=== PATIENT | female | born 1945 | race Caucasian/White ===

== ENCOUNTER → 2016-11-09 | Outpatient (CLI) | payer MEDICARE, OTHER ==
[~2016-11-09] MED LIST: LISI40TA PO; METF500T4 PO
== END | disposition home or self-care (01) ==
LOC: CFH 14:04
PROVIDERS: ATTEND Nurse Practitioner Family
DX: Z12.31 Encounter for screening mammogram for malignant neoplasm of breast (principal); I51.7 Cardiomegaly; I27.2 Other secondary pulmonary hypertension; J81.0 Acute pulmonary edema
CPT/HCPCS: 71020; G0202

== ENCOUNTER 2016-11-23 15:56 | Inpatient (IN) | payer OTHER ==
[~2016-11-23] VITALS: Ht 154.9 cm; Wt 68.2 kg
[2016-11-23] MEDS ORDERED: ALBUTEROL/IPRATROPIUM 2.5MG/0.5MG, 3 ML NPPB ONE (16:30)
[2016-11-23] MEDS ORDERED: SODIUM CHLORIDE FLUSH 10ML SYR IVF ONE (16:30)
[2016-11-23] MEDS ORDERED: methylPREDNISolone SOD SUCC 125 MG/2 ML IVP ONE (16:30)
[2016-11-23] MEDS ORDERED: ALBUTEROL/IPRATROPIUM 2.5MG/0.5MG, 3 ML ONE (16:33)
[2016-11-23 16:47] LABS: BLOOD UREA NITROGEN 19 mg/dL (7-18)
[2016-11-23 16:51] LABS: IS PT STATUS REG ER OR PRE ER? YES
[2016-11-23] MEDS ORDERED: methylPREDNISolone SOD SUCC 125 MG/2 ML ONE (16:52)
[2016-11-23] MEDS ORDERED: MORPHINE SULFATE 4 MG/ML, 1ML IVPush PRN (20:00)
[2016-11-23] MEDS ORDERED: HYDROcodone/APAP 5/325 TABLET PO PRN (20:00)
[2016-11-23] MEDS ORDERED: ONDANSETRON 2MG/ML, 2ML IVP PRN (20:00)
[2016-11-23] MEDS ORDERED: POLYETHYLENE GLYCOL 17 GM PACKET PO PRN (20:00)
[2016-11-23] MEDS ORDERED: DOCUSATE 100 MG CAPSULE PO PRN (20:00)
[2016-11-23] MEDS: INSULIN REGULAR 100 UNITS/ML, 3ML VIAL SQ-INSULIN SCH (21:00)
[2016-11-23 21:16] VITALS: BP 130/86
[2016-11-23] MEDS: ENOXAPARIN 40 MG/0.4 ML SQ SCH (22:47)
[2016-11-23] MEDS: SODIUM CHLORIDE FLUSH 10ML SYR IVF SCH (22:47)
[2016-11-23] MEDS: NICOTINE 14MG/24 HR PATCH.TD24 TD SCH (22:47)
[2016-11-23] MEDS: metFORMIN 500 MG TABLET PO SCH (22:47)
[2016-11-23] MEDS: methylPREDNISolone SOD SUCC 125 MG/2 ML IVPush SCH (22:47)
[2016-11-23] MEDS: DOXYCYCLINE 100 MG in DEXTROSE 5% 250 ML IV SCH (22:48)
[2016-11-24] MEDS ORDERED: AMLO5TAB2 PO (00:03)
[2016-11-24] MEDS ORDERED: GABA300C PO (00:03)
[2016-11-24] MEDS ORDERED: PROP20TA PO (00:03)
[2016-11-24] MEDS ORDERED: FLUO40CA9 PO (00:03)
[2016-11-24] MEDS ORDERED: GABA600T PO (00:03)
[2016-11-24] MEDS ORDERED: ATOR40TA78 PO (00:03)
[2016-11-24] MEDS: GABAPENTIN 300 MG CAPSULE PO SCH ×3 (00:33→20:22)
[2016-11-24 01:18] VITALS: BP 124/82
[2016-11-24] MEDS ORDERED: ALBUTEROL/IPRATROPIUM 2.5MG/0.5MG, 3 ML NPPB PRN (02:30)
[2016-11-24] MEDS: ALBUTEROL/IPRATROPIUM 2.5MG/0.5MG, 3 ML NPPB SCH ×4 (06:50→18:45)
[2016-11-24] MEDS: INSULIN REGULAR 100 UNITS/ML, 3ML VIAL SQ-INSULIN SCH ×4 (07:00→20:22)
[2016-11-24 07:25] VITALS: BP 129/84
[2016-11-24] MEDS: methylPREDNISolone SOD SUCC 125 MG/2 ML IVPush SCH ×3 (07:36→23:09)
[2016-11-24] MEDS: DOXYCYCLINE 100 MG in DEXTROSE 5% 250 ML IV SCH (07:52)
[2016-11-24] MEDS: FLUOXETINE 20 MG CAPSULE PO SCH (09:46)
[2016-11-24] MEDS: SODIUM CHLORIDE FLUSH 10ML SYR IVF SCH ×2 (09:46→20:23)
[2016-11-24] MEDS: metFORMIN 500 MG TABLET PO SCH ×2 (09:46→20:23)
[2016-11-24] MEDS: LISINOPRIL 20 MG TABLET PO SCH (09:47)
[2016-11-24] MEDS: SENNA/DOCUSATE TABLET PO SCH (09:48)
[2016-11-24 13:42] VITALS: BP 116/72
[2016-11-24 19:16] VITALS: BP 114/69
[2016-11-24] MEDS: DOXYCYCLINE 100MG TABLET PO SCH (20:22)
[2016-11-24] MEDS: ENOXAPARIN 40 MG/0.4 ML SQ SCH (20:23)
[2016-11-24] MEDS: NICOTINE 14MG/24 HR PATCH.TD24 TD SCH (20:24)
[2016-11-25 03:20] VITALS: BP 108/64
[2016-11-25 06:02] LABS: ASPARTATE AMINO TRANSFERASE 11 U/L (15-37); BLOOD UREA NITROGEN 27 mg/dL (7-18)
[2016-11-25] MEDS: ALBUTEROL/IPRATROPIUM 2.5MG/0.5MG, 3 ML NPPB SCH ×4 (07:00→19:17)
[2016-11-25] MEDS: INSULIN REGULAR 100 UNITS/ML, 3ML VIAL SQ-INSULIN SCH ×4 (07:18→21:02)
[2016-11-25 07:31] VITALS: BP 105/67
[2016-11-25] MEDS: methylPREDNISolone SOD SUCC 125 MG/2 ML IVPush SCH (07:32)
[2016-11-25] MEDS: metFORMIN 500 MG TABLET PO SCH ×2 (07:33→20:41)
[2016-11-25] MEDS: DOXYCYCLINE 100MG TABLET PO SCH ×2 (07:33→20:41)
[2016-11-25] MEDS: GABAPENTIN 300 MG CAPSULE PO SCH ×2 (07:33→20:41)
[2016-11-25] MEDS: SENNA/DOCUSATE TABLET PO SCH (07:33)
[2016-11-25] MEDS: LISINOPRIL 20 MG TABLET PO SCH (07:34)
[2016-11-25] MEDS: SODIUM CHLORIDE FLUSH 10ML SYR IVF SCH ×2 (07:35→20:41)
[2016-11-25] MEDS: FLUOXETINE 20 MG CAPSULE PO SCH (07:36)
[2016-11-25 13:00] LABS: RAPID INFLUENZA A Negative (Negative)
[2016-11-25 13:01] LABS: RAPID INFLUENZA B Negative (Negative)
[2016-11-25 13:47] VITALS: BP 105/70
[2016-11-25] MEDS: ACETAMINOPHEN 325 MG TABLET PO PRN (14:04)
[2016-11-25] MEDS: CEFTRIAXONE PMX 1GM/50ML 50 ML IV SCH (14:04)
[2016-11-25 19:17] VITALS: BP 92/64
[2016-11-25] MEDS: ENOXAPARIN 40 MG/0.4 ML SQ SCH (20:41)
[2016-11-25] MEDS: NICOTINE 14MG/24 HR PATCH.TD24 TD SCH (20:41)
[2016-11-26 02:05] VITALS: BP 120/85
[2016-11-26 06:09] LABS: BLOOD UREA NITROGEN 30 mg/dL (7-18)
[2016-11-26 06:13] LABS: ASPARTATE AMINO TRANSFERASE 9 U/L (15-37)
[2016-11-26] MEDS: ALBUTEROL/IPRATROPIUM 2.5MG/0.5MG, 3 ML NPPB SCH ×4 (06:30→18:58)
[2016-11-26] MEDS: INSULIN REGULAR 100 UNITS/ML, 3ML VIAL SQ-INSULIN SCH ×4 (07:00→20:56)
[2016-11-26 07:14] VITALS: BP 125/84
[2016-11-26] MEDS: metFORMIN 500 MG TABLET PO SCH ×2 (08:14→20:43)
[2016-11-26] MEDS: GABAPENTIN 300 MG CAPSULE PO SCH ×2 (08:14→20:43)
[2016-11-26] MEDS: SENNA/DOCUSATE TABLET PO SCH (08:14)
[2016-11-26] MEDS: FLUOXETINE 20 MG CAPSULE PO SCH (08:15)
[2016-11-26] MEDS: DOXYCYCLINE 100MG TABLET PO SCH ×2 (08:15→20:43)
[2016-11-26] MEDS: LISINOPRIL 20 MG TABLET PO SCH (08:15)
[2016-11-26] MEDS: SODIUM CHLORIDE FLUSH 10ML SYR IVF SCH ×2 (08:19→20:44)
[2016-11-26] MEDS: ACETAMINOPHEN 325 MG TABLET PO PRN (11:40)
[2016-11-26 12:27] VITALS: BP 130/62
[2016-11-26] MEDS: CEFTRIAXONE PMX 1GM/50ML 50 ML IV SCH (15:01)
[2016-11-26 20:03] VITALS: BP 116/74
[2016-11-26] MEDS: NICOTINE 14MG/24 HR PATCH.TD24 TD SCH (20:43)
[2016-11-26] MEDS: ENOXAPARIN 40 MG/0.4 ML SQ SCH (20:44)
[2016-11-27] MEDS ORDERED: GUAIFENESIN/DM 200-20MG, 10ML UDC PO ONE
[2016-11-27 03:25] VITALS: BP 113/63
[2016-11-27 06:24] LABS: ASPARTATE AMINO TRANSFERASE 12 U/L (15-37); BLOOD UREA NITROGEN 28 mg/dL (7-18)
[2016-11-27 07:03] VITALS: BP 160/89
[2016-11-27] MEDS: INSULIN REGULAR 100 UNITS/ML, 3ML VIAL SQ-INSULIN SCH ×4 (07:56→21:00)
[2016-11-27] MEDS: SODIUM CHLORIDE FLUSH 10ML SYR IVF SCH ×2 (07:57→20:14)
[2016-11-27] MEDS: metFORMIN 500 MG TABLET PO SCH ×2 (07:57→21:56)
[2016-11-27] MEDS: GABAPENTIN 300 MG CAPSULE PO SCH ×2 (07:58→21:56)
[2016-11-27] MEDS: DOXYCYCLINE 100MG TABLET PO SCH ×2 (07:58→21:56)
[2016-11-27] MEDS: LISINOPRIL 20 MG TABLET PO SCH (07:58)
[2016-11-27] MEDS: SENNA/DOCUSATE TABLET PO SCH (07:58)
[2016-11-27] MEDS: FLUOXETINE 20 MG CAPSULE PO SCH (07:58)
[2016-11-27] MEDS: ALBUTEROL/IPRATROPIUM 2.5MG/0.5MG, 3 ML NPPB SCH ×4 (08:03→19:13)
[2016-11-27 14:05] VITALS: BP 111/62
[2016-11-27] MEDS: GUAIFENESIN 200 MG TABLET PO PRN (14:09)
[2016-11-27] MEDS: CEFTRIAXONE PMX 1GM/50ML 50 ML IV SCH (14:09)
[2016-11-27 18:44] VITALS: BP 146/74
[2016-11-27] MEDS: ENOXAPARIN 40 MG/0.4 ML SQ SCH (20:14)
[2016-11-27] MEDS: NICOTINE 14MG/24 HR PATCH.TD24 TD SCH (20:14)
[2016-11-28 02:05] VITALS: BP 130/86
[2016-11-28 05:56] LABS: BLOOD UREA NITROGEN 29 mg/dL (7-18)
[2016-11-28] MEDS: ALBUTEROL/IPRATROPIUM 2.5MG/0.5MG, 3 ML NPPB SCH ×3 (07:50→16:18)
[2016-11-28 07:53] VITALS: BP 152/80
[2016-11-28] MEDS: SENNA/DOCUSATE TABLET PO SCH (09:00)
[2016-11-28] MEDS: INSULIN REGULAR 100 UNITS/ML, 3ML VIAL SQ-INSULIN SCH ×4 (09:25→21:00)
[2016-11-28] MEDS: FLUOXETINE 20 MG CAPSULE PO SCH (09:33)
[2016-11-28] MEDS: LISINOPRIL 20 MG TABLET PO SCH (09:34)
[2016-11-28] MEDS: DOXYCYCLINE 100MG TABLET PO SCH ×2 (09:34→22:16)
[2016-11-28] MEDS: GABAPENTIN 300 MG CAPSULE PO SCH ×2 (09:34→22:16)
[2016-11-28] MEDS: metFORMIN 500 MG TABLET PO SCH ×2 (09:34→22:16)
[2016-11-28] MEDS: SODIUM CHLORIDE FLUSH 10ML SYR IVF SCH ×2 (09:34→21:00)
[2016-11-28] MEDS: GUAIFENESIN 200 MG TABLET PO PRN (09:35)
[2016-11-28] MEDS ORDERED: maalox/diphenh/lido/sucralfate 5 ML PO PRN (11:00)
[2016-11-28] MEDS: CEFTRIAXONE PMX 1GM/50ML 50 ML IV SCH (13:45)
[2016-11-28] MEDS: NYSTATIN 500,000 UNITS/5 ML UDC PO SCH ×3 (13:45→22:16)
[2016-11-28 16:46] VITALS: BP 107/68
[2016-11-28 19:10] VITALS: BP 112/72
[2016-11-28] MEDS: NICOTINE 14MG/24 HR PATCH.TD24 TD SCH (19:51)
[2016-11-28] MEDS: ENOXAPARIN 40 MG/0.4 ML SQ SCH (19:51)
[2016-11-29 01:56] VITALS: BP 136/88
[2016-11-29] MEDS: NYSTATIN 500,000 UNITS/5 ML UDC PO SCH ×3 (06:00→12:08)
[2016-11-29] MEDS: INSULIN REGULAR 100 UNITS/ML, 3ML VIAL SQ-INSULIN SCH ×2 (07:00→11:00)
[2016-11-29] MEDS ORDERED: ALBUTEROL/IPRATROPIUM 2.5MG/0.5MG, 3 ML NPPB PRN (07:00)
[2016-11-29 07:01] VITALS: BP 143/89
[2016-11-29] MEDS: SODIUM CHLORIDE FLUSH 10ML SYR IVF SCH (09:00)
[2016-11-29] MEDS ORDERED: CEFD300C37 PO (11:10)
[2016-11-29] MEDS ORDERED: DOXY100T PO (11:10)
[2016-11-29] MEDS ORDERED: FLUT1BLS INH (11:10)
[2016-11-29] MEDS ORDERED: TIOT18CA INH (11:10)
[2016-11-29] MEDS ORDERED: PRED20TA PO (11:10)
[2016-11-29] MEDS ORDERED: ALBU8.5H3 INH (11:12)
[2016-11-29] MEDS ORDERED: ALBU0.63 NEB (11:17)
[2016-11-29] MEDS ORDERED: NICO1PAT4 TD (11:23)
[2016-11-29] MEDS ORDERED: GUAI200T3 PO (11:23)
[2016-11-29] MEDS: GABAPENTIN 300 MG CAPSULE PO SCH (12:06)
[2016-11-29] MEDS: metFORMIN 500 MG TABLET PO SCH (12:06)
[2016-11-29] MEDS: LISINOPRIL 20 MG TABLET PO SCH (12:07)
[2016-11-29] MEDS: DOXYCYCLINE 100MG TABLET PO SCH (12:07)
[2016-11-29] MEDS: SENNA/DOCUSATE TABLET PO SCH (12:07)
[2016-11-29] MEDS: FLUOXETINE 20 MG CAPSULE PO SCH (12:07)
== END 2016-11-29 13:53 | disposition home or self-care (01) | DRG 189 ==
LOC: ED 19:00 → EDIP 19:04 → SUATTDRO 19:09 → ED 19:32 → 3NE 20:45
PROVIDERS: ADMIT Family Medicine; ATTEND Family Medicine
DX: J96.01 Acute respiratory failure with hypoxia (principal); J18.9 Pneumonia, unspecified organism; E43 Unspecified severe protein-calorie malnutrition; E44.0 Moderate protein-calorie malnutrition; J44.1 Chronic obstructive pulmonary disease with (acute) exacerbation; J44.0 Chronic obstructive pulmonary disease with (acute) lower respiratory infection; E78.5 Hyperlipidemia, unspecified; F17.200 Nicotine dependence, unspecified, uncomplicated; E11.649 Type 2 diabetes mellitus with hypoglycemia without coma; G89.29 Other chronic pain; M54.9 Dorsalgia, unspecified; I10 Essential (primary) hypertension; Z79.84 Long term (current) use of oral hypoglycemic drugs; Z79.899 Other long term (current) drug therapy; Z82.49 Family history of ischemic heart disease and other diseases of the circulatory system; Z83.3 Family history of diabetes mellitus; Z82.5 Family history of asthma and other chronic lower respiratory diseases; Z71.6 Tobacco abuse counseling; Z90.49 Acquired absence of other specified parts of digestive tract; Z90.710 Acquired absence of both cervix and uterus; Z68.24 Body mass index [BMI] 24.0-24.9, adult; E11.9 Type 2 diabetes mellitus without complications
CPT/HCPCS: 36415; 71010; 71020; 80048; 80053; 82040; 82962; 83036; 83735; 83880; 84145; 84484; 85025; 87040; 87070; 87081; 87205; 87400; 87880; 93005; 94640; 96374; J0696; J1650; J1815; J7060; J7620; J2930; J7512

== ENCOUNTER → 2016-12-25 | Outpatient (CLI) | payer OTHER ==
[~2016-12-25] MED LIST changes: +ALBU0.63 NEB; +ALBU8.5H3 INH; +AMLO5TAB2 PO; +ATOR40TA78 PO; +CEFD300C37 PO; +DOXY100T PO; +FLUO40CA9 PO; +FLUT1BLS INH; +GABA300C PO; +GABA600T PO; +GUAI200T3 PO; +NICO1PAT4 TD; +PRED20TA PO; +PROP20TA PO; +REGADENOSON 0.4 MG/5 ML SYRINGE ONE; +TIOT18CA INH
== END | disposition home or self-care (01) ==
LOC: CFH 07:14
PROVIDERS: ATTEND Internal Medicine Cardiovascular Disease
DX: I08.3 Combined rheumatic disorders of mitral, aortic and tricuspid valves (principal); I37.1 Nonrheumatic pulmonary valve insufficiency; I51.7 Cardiomegaly; E11.9 Type 2 diabetes mellitus without complications; Z87.891 Personal history of nicotine dependence
CPT/HCPCS: 78452; 93017; 93306; A9502; J2785

== ENCOUNTER → 2017-01-22 | Outpatient (CLI) | payer OTHER ==
[~2017-01-22] MED LIST changes: -REGADENOSON 0.4 MG/5 ML SYRINGE ONE
== END | disposition home or self-care (01) ==
LOC: CFH 15:18
PROVIDERS: ATTEND Nurse Practitioner Family
DX: J44.9 Chronic obstructive pulmonary disease, unspecified (principal); M79.645 Pain in left finger(s); G89.29 Other chronic pain; Z87.81 Personal history of (healed) traumatic fracture
CPT/HCPCS: 71020

== ENCOUNTER 2017-07-18 15:22 | Emergency (ER) | payer OTHER ==
[~2017-07-18] VITALS: Ht 154.9 cm; Wt 65.1 kg
[~2017-07-18 15:22] MED LIST changes: -ALBU8.5H3 INH; +ALBU8.5H8 INH; +NICO-486 TD; -NICO1PAT4 TD
[2017-07-18] MEDS ORDERED: ALBUTEROL SULFATE 2.5 MG/3 ML NPPB ONE (17:30)
[2017-07-18 17:46] LABS: RAPID INFLUENZA A Negative (Negative); RAPID INFLUENZA B Negative (Negative)
[2017-07-18 17:55] LABS: BASOPHILS # (AUTO) 0.06 x10^3/uL (0-0.1); BASOPHILS % (AUTO) 1 % (0-1); EOSINOPHILS # (AUTO) 0.17 x10^3/uL (0-0.4); EOSINOPHILS % (AUTO) 2 % (1-7); LYMPHOCYTES # (AUTO) 3.31 x10^3/uL (1-3.4); LYMPHOCYTES % (AUTO) 39 % (22-44); MD NO; MEAN CORPUSCULAR HEMOGLOBIN 28.5 pg (27.0-34.8); MEAN CORPUSCULAR HGB CONC 32.5 g/dL (32.4-35.8); MEAN CORPUSCULAR VOLUME 87.7 fL (80-100); MEAN PLATELET VOLUME 10.2 fL (7.4-10.4); MONOCYTES # (AUTO) 0.75 x10^3/uL (0.2-0.8); MONOCYTES % (AUTO) 9 % (2-9); NEUTROPHILS # (AUTO) 4.28 x10^3/uL (1.8-6.8); NEUTROPHILS % (AUTO) 50 % (42-75); PLATELET COUNT 275 x10^3/uL (130-400); RED BLOOD COUNT 5.06 x10^6/uL (3.82-5.3)
[2017-07-18 18:01] LABS: ANION GAP 6 mmol/L (5-15); CALCIUM 8.9 mg/dL (8.5-10.1); CHLORIDE 101 mmol/L (98-107); CREATININE 0.82 mg/dL (0.55-1.02)
[2017-07-18 19:24] VITALS: BP 144/72
== END 2017-07-18 19:26 | disposition home or self-care (01) ==
LOC: ED 18:25
DX: B34.9 Viral infection, unspecified (principal); E11.9 Type 2 diabetes mellitus without complications; I10 Essential (primary) hypertension; J44.9 Chronic obstructive pulmonary disease, unspecified
CPT/HCPCS: 36415; 80048; 82040; 85025; 87400; 93005; 94640; 99285; J7613

== ENCOUNTER → 2017-08-25 | Outpatient (CLI) | payer OTHER ==
[~2017-08-25] MED LIST changes: +OMNIPAQUE 350 MG/ML, 100ML BOTTLE ONE
== END | disposition home or self-care (01) ==
LOC: CFH 14:08
PROVIDERS: ATTEND Nurse Practitioner Family
DX: J44.9 Chronic obstructive pulmonary disease, unspecified (principal); R63.4 Abnormal weight loss
CPT/HCPCS: 71260; 74177; Q9967

== ENCOUNTER 2017-09-17 15:04 | Inpatient (IN) | payer OTHER ==
[~2017-09-17] VITALS: Ht 154.9 cm; Wt 67.4 kg
[~2017-09-17 15:04] MED LIST changes: -OMNIPAQUE 350 MG/ML, 100ML BOTTLE ONE
[2017-09-17] MEDS ORDERED: ALBUTEROL/IPRATROPIUM 2.5MG/0.5MG, 3 ML NPPB ONE ×2 (15:30→17:00)
[2017-09-17] MEDS ORDERED: ALBUTEROL/IPRATROPIUM 2.5MG/0.5MG, 3 ML ONE ×2 (16:07→16:14)
[2017-09-17 16:14] LABS: BASOPHILS # (AUTO) 0.12 x10^3/uL (0-0.1); BASOPHILS % (AUTO) 1 % (0-1); EOSINOPHILS # (AUTO) 0.25 x10^3/uL (0-0.4); EOSINOPHILS % (AUTO) 2 % (1-7); LYMPHOCYTES # (AUTO) 3.48 x10^3/uL (1-3.4); LYMPHOCYTES % (AUTO) 31 % (22-44); MD NO; MEAN CORPUSCULAR HEMOGLOBIN 29.3 pg (27.0-34.8); MEAN CORPUSCULAR VOLUME 88.8 fL (80-100); MEAN PLATELET VOLUME 10.1 fL (7.4-10.4); MONOCYTES # (AUTO) 0.81 x10^3/uL (0.2-0.8); MONOCYTES % (AUTO) 7 % (2-9); NEUTROPHILS # (AUTO) 6.61 x10^3/uL (1.8-6.8); NEUTROPHILS % (AUTO) 59 % (42-75); PLATELET COUNT 318 x10^3/uL (130-400); RED BLOOD COUNT 4.65 x10^6/uL (3.82-5.3); RED CELL DISTRIBUTION WIDTH 14.1 % (9.6-15.2)
[2017-09-17] MEDS ORDERED: ASPIRIN 81 MG TABLET CHEW ONE (16:16)
[2017-09-17 16:27] LABS: ALANINE AMINOTRANSFERASE 13 U/L (12-78); ALBUMIN 2.8 g/dL (3.4-5.0); ANION GAP 7 mmol/L (5-15); CHLORIDE 100 mmol/L (98-107)
[2017-09-17] MEDS ORDERED: ASPIRIN 81 MG TABLET CHEW PO ONE (16:30)
[2017-09-17 16:31] LABS: ALKALINE PHOSPHATASE 84 U/L (45-117); BILIRUBIN,TOTAL 0.2 mg/dL (0.2-1.0); TOTAL PROTEIN 6.8 g/dL (6.4-8.2); TROPONIN I < 0.015 ng/mL (0.000-0.045)
[2017-09-17] MEDS ORDERED: ACETAMINOPHEN 325 MG TABLET PO PRN (17:30)
[2017-09-17] MEDS ORDERED: BISACODYL 10 MG SUPP PR PRN (17:30)
[2017-09-17] MEDS ORDERED: ENALAPRILAT 1.25 MG/ML, 2ML IVPush PRN (17:30)
[2017-09-17] MEDS ORDERED: ONDANSETRON 2MG/ML, 2ML IVPush PRN (17:30)
[2017-09-17] MEDS ORDERED: CEFTRIAXONE PMX 1GM/50ML 50 ML IV SCH (17:30)
[2017-09-17] MEDS ORDERED: POLYETHYLENE GLYCOL 17 GM PACKET PO PRN (17:30)
[2017-09-17] MEDS ORDERED: DOCUSATE 100 MG CAPSULE PO PRN (17:30)
[2017-09-17] MEDS ORDERED: TEMPLATE NON-FORMULARY MED. (Albuterol Sulfate (Albuterol Sulfate**) 1 VIAL) NEB PRN (17:30)
[2017-09-17] MEDS ORDERED: ENOXAPARIN 40 MG/0.4 ML ONE (17:41)
[2017-09-17] MEDS ORDERED: CEFTRIAXONE PMX 1GM/50ML 50 ML ONE (17:41)
[2017-09-17] MEDS: ENOXAPARIN 40 MG/0.4 ML SQ SCH (18:12)
[2017-09-17 19:15] VITALS: BP 117/76
[2017-09-17] MEDS: ATORVASTATIN 40 MG TABLET PO SCH (21:00)
[2017-09-17] MEDS ORDERED: ALBUTEROL SULFATE 2.5 MG/3 ML NPPB SCH (21:00)
[2017-09-17] MEDS: DOXYCYCLINE 100 MG in DEXTROSE 5% 250 ML IV SCH (21:21)
[2017-09-17] MEDS: metFORMIN 500 MG TABLET PO SCH (21:21)
[2017-09-17] MEDS: GUAIFENESIN ER 600 MG TABLET PO SCH (21:21)
[2017-09-17] MEDS: AMLODIPINE 5 MG TABLET PO SCH (21:21)
[2017-09-17] MEDS: FLUTICASONE/VILANTEROL 200-25MCG/INH INH SCH (21:21)
[2017-09-17] MEDS: SODIUM CHLORIDE FLUSH 10ML SYR IVF SCH (21:22)
[2017-09-17] MEDS: GABAPENTIN 300 MG CAPSULE PO SCH (21:22)
[2017-09-17] MEDS: PROPRANOLOL 20 MG TABLET PO SCH (21:22)
[2017-09-17] MEDS ORDERED: ALBUTEROL/IPRATROPIUM 2.5MG/0.5MG, 3 ML NPPB PRN (21:30)
[2017-09-17 22:06] LABS: RAPID INFLUENZA A Negative (Negative); RAPID INFLUENZA B Negative (Negative)
[2017-09-18 01:19] VITALS: BP 96/64
[2017-09-18 05:02] LABS: BASOPHILS # (AUTO) 0.08 x10^3/uL (0-0.1); BASOPHILS % (AUTO) 1 % (0-1); EOSINOPHILS % (AUTO) 0 % (1-7); LYMPHOCYTES # (AUTO) 2.47 x10^3/uL (1-3.4); LYMPHOCYTES % (AUTO) 22 % (22-44); MD NO; MEAN CORPUSCULAR HEMOGLOBIN 28.9 pg (27.0-34.8); MEAN CORPUSCULAR VOLUME 87.7 fL (80-100); MONOCYTES # (AUTO) 0.27 x10^3/uL (0.2-0.8); MONOCYTES % (AUTO) 2 % (2-9); NEUTROPHILS # (AUTO) 8.68 x10^3/uL (1.8-6.8); NEUTROPHILS % (AUTO) 76 % (42-75); PLATELET COUNT 318 x10^3/uL (130-400); RED BLOOD COUNT 4.69 x10^6/uL (3.82-5.3); RED CELL DISTRIBUTION WIDTH 14.2 % (9.6-15.2)
[2017-09-18 05:08] LABS: ANION GAP 7 mmol/L (5-15); CALCIUM 8.8 mg/dL (8.5-10.1); CHLORIDE 100 mmol/L (98-107); CREATININE 0.84 mg/dL (0.55-1.02)
[2017-09-18 07:24] VITALS: BP 132/89
[2017-09-18] MEDS: ALBUTEROL/IPRATROPIUM 2.5MG/0.5MG, 3 ML NPPB SCH ×4 (07:38→21:40)
[2017-09-18] MEDS: SODIUM CHLORIDE FLUSH 10ML SYR IVF SCH ×2 (08:44→21:07)
[2017-09-18] MEDS: FLUTICASONE/VILANTEROL 200-25MCG/INH INH SCH ×2 (08:44→21:07)
[2017-09-18] MEDS: GABAPENTIN 300 MG CAPSULE PO SCH ×2 (08:45→21:07)
[2017-09-18] MEDS: metFORMIN 500 MG TABLET PO SCH ×2 (08:45→21:07)
[2017-09-18] MEDS: PROPRANOLOL 20 MG TABLET PO SCH ×2 (08:45→21:07)
[2017-09-18] MEDS: LISINOPRIL 20 MG TABLET PO SCH (08:45)
[2017-09-18] MEDS: GUAIFENESIN ER 600 MG TABLET PO SCH ×2 (08:45→21:07)
[2017-09-18] MEDS: FLUOXETINE HCL 20 MG CAPSULE PO SCH (08:46)
[2017-09-18] MEDS ORDERED: IPRATROPIUM 0.5 MG/2.5 ML INHA NPPB SCH (09:00)
[2017-09-18] MEDS: DOXYCYCLINE 100 MG in DEXTROSE 5% 250 ML IV SCH ×2 (09:26→21:07)
[2017-09-18 14:00] VITALS: BP 112/74
[2017-09-18] MEDS: ENOXAPARIN 40 MG/0.4 ML SQ SCH (17:49)
[2017-09-18] MEDS: CEFTRIAXONE 1,000 MG in SODIUM CHLORIDE 0.9% 50 ML IV SCH (17:52)
[2017-09-18 19:22] VITALS: BP 106/59
[2017-09-18] MEDS: ATORVASTATIN 40 MG TABLET PO SCH (21:00)
[2017-09-18] MEDS: AMLODIPINE 5 MG TABLET PO SCH (21:07)
[2017-09-19 01:40] VITALS: BP 102/60
[2017-09-19 05:11] LABS: BASOPHILS # (AUTO) 0.03 x10^3/uL (0-0.1); BASOPHILS % (AUTO) 0 % (0-1); EOSINOPHILS % (AUTO) 0 % (1-7); LYMPHOCYTES # (AUTO) 3.16 x10^3/uL (1-3.4); LYMPHOCYTES % (AUTO) 22 % (22-44); MD NO; MEAN CORPUSCULAR HGB CONC 32.9 g/dL (32.4-35.8); MEAN CORPUSCULAR VOLUME 88.1 fL (80-100); MEAN PLATELET VOLUME 9.9 fL (7.4-10.4); MONOCYTES # (AUTO) 0.87 x10^3/uL (0.2-0.8); MONOCYTES % (AUTO) 6 % (2-9); NEUTROPHILS # (AUTO) 10.38 x10^3/uL (1.8-6.8); NEUTROPHILS % (AUTO) 72 % (42-75); PLATELET COUNT 302 x10^3/uL (130-400); RED BLOOD COUNT 4.25 x10^6/uL (3.82-5.3); RED CELL DISTRIBUTION WIDTH 14.6 % (9.6-15.2)
[2017-09-19 05:15] LABS: ANION GAP 8 mmol/L (5-15); CALCIUM 8.6 mg/dL (8.5-10.1); CHLORIDE 101 mmol/L (98-107); CREATININE 0.85 mg/dL (0.55-1.02)
[2017-09-19] MEDS: ALBUTEROL/IPRATROPIUM 2.5MG/0.5MG, 3 ML NPPB SCH ×4 (07:23→19:55)
[2017-09-19 07:50] VITALS: BP 106/56
[2017-09-19] MEDS: metFORMIN 500 MG TABLET PO SCH ×2 (08:36→21:42)
[2017-09-19] MEDS: FLUOXETINE HCL 20 MG CAPSULE PO SCH (08:36)
[2017-09-19] MEDS: SODIUM CHLORIDE FLUSH 10ML SYR IVF SCH ×2 (08:36→21:00)
[2017-09-19] MEDS: GUAIFENESIN ER 600 MG TABLET PO SCH ×2 (08:36→21:42)
[2017-09-19] MEDS: GABAPENTIN 300 MG CAPSULE PO SCH ×2 (08:37→21:41)
[2017-09-19] MEDS: FLUTICASONE/VILANTEROL 200-25MCG/INH INH SCH ×2 (08:37→21:41)
[2017-09-19] MEDS: PROPRANOLOL 20 MG TABLET PO SCH ×2 (08:37→21:00)
[2017-09-19] MEDS: LISINOPRIL 20 MG TABLET PO SCH (08:37)
[2017-09-19] MEDS: DOXYCYCLINE 100 MG in DEXTROSE 5% 250 ML IV SCH ×2 (09:49→22:30)
[2017-09-19 14:21] VITALS: BP 116/57
[2017-09-19 15:01] LABS: CLOSTRIDIUM DIFFICILE ANTIGEN NEGATIVE; CLOSTRIDIUM DIFFICILE TOXIN NEGATIVE (Negative)
[2017-09-19] MEDS: LOPERAMIDE 2 MG CAPSULE PO PRN (16:00)
[2017-09-19] MEDS: ENOXAPARIN 40 MG/0.4 ML SQ SCH (17:45)
[2017-09-19] MEDS: CEFTRIAXONE 1,000 MG in SODIUM CHLORIDE 0.9% 50 ML IV SCH (17:45)
[2017-09-19 19:15] VITALS: BP 105/70
[2017-09-19] MEDS: ATORVASTATIN 40 MG TABLET PO SCH (21:41)
[2017-09-19] MEDS: AMLODIPINE 5 MG TABLET PO SCH (21:42)
[2017-09-20 02:49] VITALS: BP 104/69
[2017-09-20] MEDS: ALBUTEROL/IPRATROPIUM 2.5MG/0.5MG, 3 ML NPPB SCH (07:00)
[2017-09-20 07:12] VITALS: BP 123/73
[2017-09-20] MEDS: FLUOXETINE HCL 20 MG CAPSULE PO SCH (08:12)
[2017-09-20] MEDS: FLUTICASONE/VILANTEROL 200-25MCG/INH INH SCH (08:12)
[2017-09-20] MEDS: GABAPENTIN 300 MG CAPSULE PO SCH (08:13)
[2017-09-20] MEDS: PROPRANOLOL 20 MG TABLET PO SCH (08:13)
[2017-09-20] MEDS: GUAIFENESIN ER 600 MG TABLET PO SCH (08:13)
[2017-09-20] MEDS: LISINOPRIL 20 MG TABLET PO SCH (08:13)
[2017-09-20] MEDS: metFORMIN 500 MG TABLET PO SCH (08:13)
[2017-09-20] MEDS: DOXYCYCLINE 100 MG in DEXTROSE 5% 250 ML IV SCH (08:56)
[2017-09-20] MEDS: SODIUM CHLORIDE FLUSH 10ML SYR IVF SCH (09:01)
[2017-09-20] MEDS: LOPERAMIDE 2 MG CAPSULE PO PRN (10:15)
[2017-09-20] MEDS ORDERED: PRED20TA PO (12:35)
[2017-09-20] MEDS ORDERED: DOXY100T PO (12:35)
[2017-09-20] MEDS ORDERED: CEFD300C37 PO (12:35)
== END 2017-09-20 14:22 | disposition home health service (06) | DRG 189 ==
LOC: ED 16:33 → EDIP 17:05 → 4NOR 18:41 → DCLOUNGE 09-20 14:07
PROVIDERS: ADMIT Internal Medicine; ATTEND Internal Medicine
DX: J96.21 Acute and chronic respiratory failure with hypoxia (principal); E44.0 Moderate protein-calorie malnutrition; E11.65 Type 2 diabetes mellitus with hyperglycemia; J44.0 Chronic obstructive pulmonary disease with (acute) lower respiratory infection; J44.1 Chronic obstructive pulmonary disease with (acute) exacerbation; E78.5 Hyperlipidemia, unspecified; F17.210 Nicotine dependence, cigarettes, uncomplicated; I11.9 Hypertensive heart disease without heart failure; J20.9 Acute bronchitis, unspecified; T38.0X5A Adverse effect of glucocorticoids and synthetic analogues, initial encounter; Z66 Do not resuscitate; Z79.84 Long term (current) use of oral hypoglycemic drugs; Z82.49 Family history of ischemic heart disease and other diseases of the circulatory system; Z83.3 Family history of diabetes mellitus; Z90.710 Acquired absence of both cervix and uterus; Z99.81 Dependence on supplemental oxygen; Z88.6 Allergy status to analgesic agent; Z91.038 Other insect allergy status
CPT/HCPCS: 36415; 71046; 80048; 80053; 83880; 84484; 85025; 87070; 87205; 87324; 87400; 93005; 94640; 96374; J0696; J1650; J7060; J7613; J7620; J7512

== ENCOUNTER → 2018-01-12 | Outpatient (CLI) | payer OTHER ==
[~2018-01-12] MED LIST changes: -METF500T4 PO; +METF500T5 PO
== END | disposition home or self-care (01) ==
LOC: CFH 12:35
PROVIDERS: ATTEND Internal Medicine Critical Care Medicine
DX: Z12.2 Encounter for screening for malignant neoplasm of respiratory organs (principal); Z12.31 Encounter for screening mammogram for malignant neoplasm of breast; M48.54XA Collapsed vertebra, not elsewhere classified, thoracic region, initial encounter for fracture; I25.10 Atherosclerotic heart disease of native coronary artery without angina pectoris; J98.11 Atelectasis; M51.34 Other intervertebral disc degeneration, thoracic region; Z72.0 Tobacco use
CPT/HCPCS: 77067; G0297

== ENCOUNTER 2018-05-09 05:08 | Emergency (ER) | payer OTHER ==
[~2018-05-09] VITALS: Ht 154.9 cm; Wt 70.2 kg
[~2018-05-09 05:08] MED LIST changes: -AMLO5TAB2 PO; +AMLO5TAB7 PO; +METF500T17 PO; -METF500T5 PO
[2018-05-09] MEDS ORDERED: SODIUM CHLORIDE FLUSH 10ML SYR IVF ONE (06:00)
[2018-05-09] MEDS ORDERED: MORPHINE SULFATE 4 MG/ML, 1ML IVPush PRN (06:00)
[2018-05-09] MEDS ORDERED: ONDANSETRON ODT 4 MG PO ONE (06:00)
[2018-05-09 06:15] LABS: ALBUMIN 3.5 g/dL (3.4-5.0); ANION GAP 7 mmol/L (5-15); CALCIUM 9.1 mg/dL (8.5-10.1); CHLORIDE 103 mmol/L (98-107)
[2018-05-09 06:17] LABS: BASOPHILS # (AUTO) 0.05 x10^3/uL (0-0.1); BASOPHILS % (AUTO) 1 % (0-1); EOSINOPHILS # (AUTO) 0.26 x10^3/uL (0-0.4); EOSINOPHILS % (AUTO) 3 % (1-7); LYMPHOCYTES # (AUTO) 2.58 x10^3/uL (1-3.4); LYMPHOCYTES % (AUTO) 30 % (22-44); MD NO; MEAN CORPUSCULAR VOLUME 88.1 fL (80-100); MEAN PLATELET VOLUME 10.2 fL (7.4-10.4); MONOCYTES # (AUTO) 0.53 x10^3/uL (0.2-0.8); MONOCYTES % (AUTO) 6 % (2-9); NEUTROPHILS % (AUTO) 60 % (42-75); PLATELET COUNT 263 x10^3/uL (130-400); RED BLOOD COUNT 4.96 x10^6/uL (3.82-5.3); RED CELL DISTRIBUTION WIDTH 14.7 % (9.6-15.2)
[2018-05-09 06:18] LABS: BILIRUBIN,TOTAL 0.2 mg/dL (0.2-1.0); CREATININE 1.05 mg/dL (0.55-1.02)
[2018-05-09 06:19] LABS: ALANINE AMINOTRANSFERASE 24 U/L (12-78); ALKALINE PHOSPHATASE 80 U/L (45-117); TOTAL PROTEIN 7.3 g/dL (6.4-8.2)
[2018-05-09] MEDS ORDERED: MORPHINE SULFATE 4 MG/ML, 1ML ONE (07:02)
[2018-05-09] MEDS ORDERED: ONDANSETRON ODT 4 MG ONE (07:02)
[2018-05-09] MEDS ORDERED: OMNIPAQUE 350 MG/ML, 100ML BOTTLE ONE (07:38)
[2018-05-09 08:03] LABS: MICROSCOPIC AUTO
[2018-05-09 08:04] LABS: CULTURE INDICATED? NO
[2018-05-09 08:38] VITALS: BP 136/78
== END 2018-05-09 08:41 | disposition home or self-care (01) ==
LOC: ED 08:35
DX: G89.11 Acute pain due to trauma (principal); R10.9 Unspecified abdominal pain; M54.6 Pain in thoracic spine; I10 Essential (primary) hypertension; E11.9 Type 2 diabetes mellitus without complications; F17.200 Nicotine dependence, unspecified, uncomplicated; W01.10XA Fall on same level from slipping, tripping and stumbling with subsequent striking against unspecified object, initial encounter; Y93.89 Activity, other specified; Y92.89 Other specified places as the place of occurrence of the external cause; Y99.8 Other external cause status
CPT/HCPCS: 36415; 71101; 74177; 80053; 81001; 85025; 93005; 96374; 99285; Q0162; Q9967

== ENCOUNTER 2018-06-11 15:14 | Inpatient (IN) | payer OTHER ==
[~2018-06-11] VITALS: Ht 154.9 cm; Wt 66.8 kg
[~2018-06-11 15:14] MED LIST changes: +AMLO-150 PO; -AMLO5TAB7 PO
[2018-06-11] MEDS ORDERED: BUPR150T13 PO (16:16)
[2018-06-11] MEDS ORDERED: HYDR-3237 PO (16:16)
[2018-06-11 16:42] LABS: BASOPHILS # (AUTO) 0.07 x10^3/uL (0-0.1); BASOPHILS % (AUTO) 1 % (0-1); EOSINOPHILS # (AUTO) 0.04 x10^3/uL (0-0.4); EOSINOPHILS % (AUTO) 0 % (1-7); LYMPHOCYTES # (AUTO) 2.16 x10^3/uL (1-3.4); LYMPHOCYTES % (AUTO) 16 % (22-44); MD NO; MEAN CORPUSCULAR HEMOGLOBIN 28.1 pg (27.0-34.8); MEAN CORPUSCULAR HGB CONC 32.5 g/dL (32.4-35.8); MEAN CORPUSCULAR VOLUME 86.4 fL (80-100); MEAN PLATELET VOLUME 10.6 fL (7.4-10.4); MONOCYTES # (AUTO) 1.21 x10^3/uL (0.2-0.8); MONOCYTES % (AUTO) 9 % (2-9); NEUTROPHILS # (AUTO) 9.92 x10^3/uL (1.8-6.8); NEUTROPHILS % (AUTO) 74 % (42-75); PLATELET COUNT 269 x10^3/uL (130-400); RED CELL DISTRIBUTION WIDTH 14.1 % (9.6-15.2)
[2018-06-11 16:49] LABS: ALANINE AMINOTRANSFERASE 18 U/L (12-78); ALBUMIN 3.4 g/dL (3.4-5.0); ANION GAP 3 mmol/L (5-15); CALCIUM 9.2 mg/dL (8.5-10.1); CHLORIDE 103 mmol/L (98-107); CREATININE 1.07 mg/dL (0.55-1.02)
[2018-06-11 16:56] LABS: ALKALINE PHOSPHATASE 77 U/L (45-117); BILIRUBIN,TOTAL 0.9 mg/dL (0.2-1.0); TOTAL PROTEIN 7.8 g/dL (6.4-8.2); TROPONIN I < 0.015 ng/mL (0.000-0.045)
[2018-06-11 17:42] LABS: MICROSCOPIC AUTO
[2018-06-11 17:43] LABS: CULTURE INDICATED? NO
[2018-06-11] MEDS ORDERED: CEFTRIAXONE PMX 1GM/50ML 50 ML ONE (17:50)
[2018-06-11] MEDS ORDERED: ALBUTEROL SULFATE 2.5 MG/3 ML NEB PRN (18:30)
[2018-06-11] MEDS ORDERED: HYDROcodone/APAP 5/325 TABLET PO PRN (18:30)
[2018-06-11] MEDS ORDERED: hydrALAzine 20 MG/ML, 1ML IVPush PRN (18:30)
[2018-06-11] MEDS ORDERED: ONDANSETRON 2MG/ML, 2ML IVPush PRN (18:30)
[2018-06-11] MEDS ORDERED: DOCUSATE 100 MG CAPSULE PO PRN (18:30)
[2018-06-11] MEDS ORDERED: CEFTRIAXONE PMX 1GM/50ML 50 ML IVPB ONE (18:30)
[2018-06-11] MEDS ORDERED: AZITHROMYCIN 500 MG in SODIUM CHLORIDE 0.9% 250 ML IV ONE (19:00)
[2018-06-11] MEDS ORDERED: ALBUTEROL/IPRATROPIUM 2.5MG/0.5MG, 3 ML ONE (19:08)
[2018-06-11] MEDS ORDERED: ALBUTEROL/IPRATROPIUM 2.5MG/0.5MG, 3 ML NPPB PRN (19:30)
[2018-06-11 19:40] VITALS: BP 118/78
[2018-06-11] MEDS: ALBUTEROL SULFATE 2.5MG/0.5ML NPPB SCH (20:30)
[2018-06-11] MEDS: HEPARIN 5,000 UNITS/ML, 1ML SQ SCH (20:31)
[2018-06-11 20:33] VITALS: BP 124/81
[2018-06-11 20:36] VITALS: BP 116/81
[2018-06-11] MEDS: GABAPENTIN 300 MG CAPSULE PO SCH (20:37)
[2018-06-11] MEDS: ATORVASTATIN 40 MG TABLET PO SCH (20:37)
[2018-06-11] MEDS: metFORMIN 500 MG TABLET PO SCH (20:38)
[2018-06-11] MEDS: AMLODIPINE 5 MG TABLET PO SCH (20:43)
[2018-06-11] MEDS ORDERED: ALBUTEROL/IPRATROPIUM 2.5MG/0.5MG, 3 ML NPPB SCH (21:00)
[2018-06-11] MEDS ORDERED: PROPRANOLOL 20 MG TABLET PO SCH (21:00)
[2018-06-11] MEDS: BUDESONIDE 0.5 MG/2 ML INHA INH SCH (21:00)
[2018-06-11] MEDS ORDERED: FLUTICASONE/VILANTEROL 200-25MCG/INH INH SCH (21:00)
[2018-06-11 22:26] VITALS: BP 91/64
[2018-06-11 22:56] VITALS: BP 99/67
[2018-06-11 23:03] VITALS: BP 111/66
[2018-06-12 00:51] VITALS: BP 134/81
[2018-06-12] MEDS: ALBUTEROL SULFATE 2.5MG/0.5ML NPPB SCH (02:30)
[2018-06-12] MEDS: ACETAMINOPHEN 325 MG TABLET PO PRN (03:13)
[2018-06-12] MEDS: HEPARIN 5,000 UNITS/ML, 1ML SQ SCH ×3 (05:12→20:59)
[2018-06-12 06:18] LABS: ANION GAP 8 mmol/L (5-15); CALCIUM 8.5 mg/dL (8.5-10.1); CHLORIDE 105 mmol/L (98-107)
[2018-06-12 06:20] LABS: BASOPHILS # (AUTO) 0.06 x10^3/uL (0-0.1); BASOPHILS % (AUTO) 1 % (0-1); CREATININE 0.83 mg/dL (0.55-1.02); EOSINOPHILS # (AUTO) 0.14 x10^3/uL (0-0.4); EOSINOPHILS % (AUTO) 1 % (1-7); LYMPHOCYTES # (AUTO) 3.09 x10^3/uL (1-3.4); LYMPHOCYTES % (AUTO) 29 % (22-44); MD NO; MEAN CORPUSCULAR HEMOGLOBIN 28.8 pg (27.0-34.8); MEAN CORPUSCULAR HGB CONC 33.1 g/dL (32.4-35.8); MEAN CORPUSCULAR VOLUME 86.9 fL (80-100); MEAN PLATELET VOLUME 10.8 fL (7.4-10.4); MONOCYTES # (AUTO) 1.35 x10^3/uL (0.2-0.8); MONOCYTES % (AUTO) 13 % (2-9); NEUTROPHILS # (AUTO) 6.01 x10^3/uL (1.8-6.8); NEUTROPHILS % (AUTO) 56 % (42-75); PLATELET COUNT 222 x10^3/uL (130-400); RED BLOOD COUNT 4.25 x10^6/uL (3.82-5.3); RED CELL DISTRIBUTION WIDTH 14.4 % (9.6-15.2)
[2018-06-12 07:10] VITALS: BP 105/73
[2018-06-12] MEDS: FLUOXETINE HCL 20 MG CAPSULE PO SCH (08:03)
[2018-06-12] MEDS: BUPROPION SR 150 MG TABLET PO SCH (08:08)
[2018-06-12] MEDS: metFORMIN 500 MG TABLET PO SCH ×2 (08:08→20:59)
[2018-06-12] MEDS: GABAPENTIN 300 MG CAPSULE PO SCH ×2 (08:09→20:59)
[2018-06-12] MEDS: LISINOPRIL 20 MG TABLET PO SCH (08:09)
[2018-06-12] MEDS: TEMPLATE NON-FORMULARY MED. (Tiotropium Bromide** (Spiriva**) 18 MCG) INH SCH (09:00)
[2018-06-12] MEDS: BUDESONIDE 0.5 MG/2 ML INHA INH SCH ×2 (10:33→19:30)
[2018-06-12] MEDS ORDERED: ALBUTEROL/IPRATROPIUM 2.5MG/0.5MG, 3 ML NPPB PRN (11:00)
[2018-06-12 12:30] VITALS: BP 95/63
[2018-06-12] MEDS: CEFTRIAXONE PMX 1GM/50ML 50 ML IV SCH (15:22)
[2018-06-12] MEDS: AZITHROMYCIN 500 MG in SODIUM CHLORIDE 0.9% 250 ML IV SCH (17:15)
[2018-06-12] MEDS: ALBUTEROL/IPRATROPIUM 2.5MG/0.5MG, 3 ML NPPB SCH ×2 (19:25→20:00)
[2018-06-12] MEDS: ATORVASTATIN 40 MG TABLET PO SCH (20:59)
[2018-06-12] MEDS: AMLODIPINE 5 MG TABLET PO SCH (20:59)
[2018-06-12 21:21] VITALS: BP 121/75
[2018-06-13 02:58] VITALS: BP 102/66
[2018-06-13] MEDS: HEPARIN 5,000 UNITS/ML, 1ML SQ SCH ×3 (04:42→21:07)
[2018-06-13 06:51] LABS: BASOPHILS # (AUTO) 0.03 x10^3/uL (0-0.1); BASOPHILS % (AUTO) 1 % (0-1); EOSINOPHILS # (AUTO) 0.23 x10^3/uL (0-0.4); EOSINOPHILS % (AUTO) 3 % (1-7); LYMPHOCYTES # (AUTO) 1.83 x10^3/uL (1-3.4); LYMPHOCYTES % (AUTO) 25 % (22-44); MD NO; MEAN CORPUSCULAR HEMOGLOBIN 28.6 pg (27.0-34.8); MEAN CORPUSCULAR HGB CONC 32.8 g/dL (32.4-35.8); MEAN CORPUSCULAR VOLUME 87.2 fL (80-100); MEAN PLATELET VOLUME 10.5 fL (7.4-10.4); MONOCYTES % (AUTO) 11 % (2-9); NEUTROPHILS # (AUTO) 4.52 x10^3/uL (1.8-6.8); NEUTROPHILS % (AUTO) 61 % (42-75); PLATELET COUNT 230 x10^3/uL (130-400); RED BLOOD COUNT 4.23 x10^6/uL (3.82-5.3); RED CELL DISTRIBUTION WIDTH 14.4 % (9.6-15.2)
[2018-06-13 07:05] VITALS: BP 110/78
[2018-06-13] MEDS: BUDESONIDE 0.5 MG/2 ML INHA INH SCH ×2 (07:35→19:30)
[2018-06-13] MEDS: ALBUTEROL/IPRATROPIUM 2.5MG/0.5MG, 3 ML NPPB SCH ×3 (07:35→19:30)
[2018-06-13] MEDS: TEMPLATE NON-FORMULARY MED. (Tiotropium Bromide** (Spiriva**) 18 MCG) INH SCH (08:40)
[2018-06-13] MEDS: FLUOXETINE HCL 20 MG CAPSULE PO SCH (09:00)
[2018-06-13] MEDS: LISINOPRIL 20 MG TABLET PO SCH (09:03)
[2018-06-13] MEDS: metFORMIN 500 MG TABLET PO SCH ×2 (09:04→21:08)
[2018-06-13] MEDS: GABAPENTIN 300 MG CAPSULE PO SCH ×2 (09:05→21:08)
[2018-06-13] MEDS: BUPROPION SR 150 MG TABLET PO SCH (09:05)
[2018-06-13] MEDS ORDERED: DILTIAZEM 5 MG/ML, 5ML IVPush ONE (09:30)
[2018-06-13 11:08] LABS: TROPONIN I 0.022 ng/mL (0.000-0.045)
[2018-06-13 12:41] VITALS: BP 104/69
[2018-06-13 13:00] LABS: HEMOGLOBIN A1C 6.3 % (4.2-6.3)
[2018-06-13] MEDS: METOPROLOL TARTRATE 25 MG TABLET PO SCH (16:51)
[2018-06-13] MEDS: CEFTRIAXONE PMX 1GM/50ML 50 ML IV SCH (16:51)
[2018-06-13 16:56] LABS: TROPONIN I 0.036 ng/mL (0.000-0.045)
[2018-06-13] MEDS: GUAIFENESIN/COD200MG-20MG/10ML LIQUID PO PRN ×2 (16:58→23:10)
[2018-06-13] MEDS: AZITHROMYCIN 500 MG in SODIUM CHLORIDE 0.9% 250 ML IV SCH (18:05)
[2018-06-13 20:00] VITALS: BP 110/71
[2018-06-13] MEDS: ATORVASTATIN 40 MG TABLET PO SCH (21:08)
[2018-06-13] MEDS: AMLODIPINE 5 MG TABLET PO SCH (21:08)
[2018-06-13 23:10] LABS: TROPONIN I 0.024 ng/mL (0.000-0.045)
[2018-06-14 02:17] VITALS: BP 95/61
[2018-06-14] MEDS: HEPARIN 5,000 UNITS/ML, 1ML SQ SCH ×3 (04:59→22:18)
[2018-06-14] MEDS: METOPROLOL TARTRATE 25 MG TABLET PO SCH ×2 (04:59→18:22)
[2018-06-14 05:00] VITALS: BP 98/68
[2018-06-14 06:17] LABS: BASOPHILS # (AUTO) 0.05 x10^3/uL (0-0.1); BASOPHILS % (AUTO) 1 % (0-1); EOSINOPHILS # (AUTO) 0.31 x10^3/uL (0-0.4); EOSINOPHILS % (AUTO) 4 % (1-7); LYMPHOCYTES # (AUTO) 2.72 x10^3/uL (1-3.4); LYMPHOCYTES % (AUTO) 38 % (22-44); MD NO; MEAN CORPUSCULAR HEMOGLOBIN 28.6 pg (27.0-34.8); MEAN CORPUSCULAR HGB CONC 32.6 g/dL (32.4-35.8); MEAN CORPUSCULAR VOLUME 87.9 fL (80-100); MEAN PLATELET VOLUME 11.1 fL (7.4-10.4); MONOCYTES # (AUTO) 0.67 x10^3/uL (0.2-0.8); MONOCYTES % (AUTO) 9 % (2-9); NEUTROPHILS # (AUTO) 3.41 x10^3/uL (1.8-6.8); NEUTROPHILS % (AUTO) 48 % (42-75); PLATELET COUNT 247 x10^3/uL (130-400); RED BLOOD COUNT 4.36 x10^6/uL (3.82-5.3); RED CELL DISTRIBUTION WIDTH 14.4 % (9.6-15.2)
[2018-06-14 06:27] LABS: ANION GAP 7 mmol/L (5-15); CALCIUM 9.3 mg/dL (8.5-10.1); CHLORIDE 105 mmol/L (98-107)
[2018-06-14 06:29] LABS: CREATININE 0.88 mg/dL (0.55-1.02)
[2018-06-14 06:37] VITALS: BP 96/63
[2018-06-14] MEDS: ALBUTEROL/IPRATROPIUM 2.5MG/0.5MG, 3 ML NPPB SCH ×4 (07:25→18:44)
[2018-06-14] MEDS: BUDESONIDE 0.5 MG/2 ML INHA INH SCH ×2 (07:25→18:46)
[2018-06-14] MEDS: LISINOPRIL 20 MG TABLET PO SCH (09:00)
[2018-06-14] MEDS: TEMPLATE NON-FORMULARY MED. (Tiotropium Bromide** (Spiriva**) 18 MCG) INH SCH (09:00)
[2018-06-14] MEDS: FLUOXETINE HCL 20 MG CAPSULE PO SCH (09:00)
[2018-06-14] MEDS: GABAPENTIN 300 MG CAPSULE PO SCH ×2 (09:58→22:16)
[2018-06-14] MEDS: metFORMIN 500 MG TABLET PO SCH ×2 (09:59→22:14)
[2018-06-14] MEDS: BUPROPION SR 150 MG TABLET PO SCH (09:59)
[2018-06-14 10:00] VITALS: BP 96/60
[2018-06-14] MEDS: NICOTINE 14MG/24 HR PATCH.TD24 TD SCH (11:02)
[2018-06-14] MEDS: BENZONATATE 100 MG CAPSULE PO SCH ×3 (11:02→22:16)
[2018-06-14] MEDS: ACETAMINOPHEN 325 MG TABLET PO PRN (12:12)
[2018-06-14 12:32] VITALS: BP 96/62
[2018-06-14] MEDS: CEFTRIAXONE PMX 1GM/50ML 50 ML IV SCH (16:19)
[2018-06-14] MEDS: AZITHROMYCIN 500 MG in SODIUM CHLORIDE 0.9% 250 ML IV SCH (17:19)
[2018-06-14 21:25] VITALS: BP 116/72
[2018-06-14] MEDS: ATORVASTATIN 40 MG TABLET PO SCH (22:16)
[2018-06-14] MEDS: AMLODIPINE 5 MG TABLET PO SCH (22:16)
[2018-06-15 02:48] VITALS: BP 103/63
[2018-06-15 05:28] VITALS: BP 132/80
[2018-06-15] MEDS: HEPARIN 5,000 UNITS/ML, 1ML SQ SCH ×3 (05:36→20:45)
[2018-06-15] MEDS: METOPROLOL TARTRATE 25 MG TABLET PO SCH ×2 (05:37→18:44)
[2018-06-15] MEDS: ALBUTEROL/IPRATROPIUM 2.5MG/0.5MG, 3 ML NPPB SCH ×3 (06:51→19:51)
[2018-06-15] MEDS: BUDESONIDE 0.5 MG/2 ML INHA INH SCH ×2 (06:51→19:51)
[2018-06-15 08:10] VITALS: BP 124/79
[2018-06-15] MEDS: TEMPLATE NON-FORMULARY MED. (Tiotropium Bromide** (Spiriva**) 18 MCG) INH SCH (09:00)
[2018-06-15] MEDS: metFORMIN 500 MG TABLET PO SCH ×2 (10:22→20:44)
[2018-06-15] MEDS: BUPROPION SR 150 MG TABLET PO SCH (10:22)
[2018-06-15] MEDS: NICOTINE 14MG/24 HR PATCH.TD24 TD SCH (10:22)
[2018-06-15] MEDS: FLUOXETINE HCL 20 MG CAPSULE PO SCH (10:22)
[2018-06-15] MEDS: LISINOPRIL 20 MG TABLET PO SCH (10:23)
[2018-06-15] MEDS: GABAPENTIN 300 MG CAPSULE PO SCH ×2 (10:23→20:44)
[2018-06-15] MEDS: BENZONATATE 100 MG CAPSULE PO SCH ×3 (10:23→20:44)
[2018-06-15 16:07] VITALS: BP 124/82
[2018-06-15] MEDS: CEFTRIAXONE PMX 1GM/50ML 50 ML IV SCH (16:14)
[2018-06-15] MEDS: AZITHROMYCIN 500 MG in SODIUM CHLORIDE 0.9% 250 ML IV SCH (17:45)
[2018-06-15 20:26] VITALS: BP 133/76
[2018-06-15] MEDS: AMLODIPINE 5 MG TABLET PO SCH (20:44)
[2018-06-15] MEDS: ATORVASTATIN 40 MG TABLET PO SCH (20:45)
[2018-06-15] MEDS: ACETAMINOPHEN 325 MG TABLET PO PRN (20:45)
[2018-06-16 01:39] VITALS: BP 119/77
[2018-06-16] MEDS: HEPARIN 5,000 UNITS/ML, 1ML SQ SCH ×3 (04:30→14:00)
[2018-06-16] MEDS: METOPROLOL TARTRATE 25 MG TABLET PO SCH (06:00)
[2018-06-16 06:08] VITALS: BP 136/79
[2018-06-16 06:33] VITALS: BP 114/79
[2018-06-16] MEDS: ALBUTEROL/IPRATROPIUM 2.5MG/0.5MG, 3 ML NPPB SCH ×3 (07:00→14:32)
[2018-06-16] MEDS: BUDESONIDE 0.5 MG/2 ML INHA INH SCH (07:01)
[2018-06-16] MEDS: TEMPLATE NON-FORMULARY MED. (Tiotropium Bromide** (Spiriva**) 18 MCG) INH SCH (08:56)
[2018-06-16 09:06] VITALS: BP 113/77
[2018-06-16] MEDS: LISINOPRIL 20 MG TABLET PO SCH (09:23)
[2018-06-16] MEDS: FLUOXETINE HCL 20 MG CAPSULE PO SCH (09:24)
[2018-06-16] MEDS: BENZONATATE 100 MG CAPSULE PO SCH (09:25)
[2018-06-16] MEDS: GABAPENTIN 300 MG CAPSULE PO SCH (09:25)
[2018-06-16] MEDS: BUPROPION SR 150 MG TABLET PO SCH (09:26)
[2018-06-16] MEDS: metFORMIN 500 MG TABLET PO SCH (09:29)
[2018-06-16] MEDS: NICOTINE 14MG/24 HR PATCH.TD24 TD SCH (13:27)
[2018-06-16] MEDS ORDERED: METO25TA35 PO (13:42)
[2018-06-16] MEDS ORDERED: AZIT500T5 PO (13:42)
[2018-06-16] MEDS ORDERED: BENZ-17 PO (13:42)
[2018-06-16] MEDS ORDERED: APIX5TAB PO (13:43)
== END 2018-06-16 14:45 | disposition home or self-care (01) | DRG 871 ==
LOC: ED 18:05 → EDIP 18:25 → 4WST 19:30
PROVIDERS: ADMIT Hospitalist; ATTEND Hospitalist
DX: A41.9 Sepsis, unspecified organism (principal); G92 Toxic encephalopathy; J18.1 Lobar pneumonia, unspecified organism; J96.11 Chronic respiratory failure with hypoxia; J44.0 Chronic obstructive pulmonary disease with (acute) lower respiratory infection; E87.1 Hypo-osmolality and hyponatremia; E78.5 Hyperlipidemia, unspecified; F17.200 Nicotine dependence, unspecified, uncomplicated; Z66 Do not resuscitate; E11.42 Type 2 diabetes mellitus with diabetic polyneuropathy; I48.0 Paroxysmal atrial fibrillation; F03.90 Unspecified dementia, unspecified severity, without behavioral disturbance, psychotic disturbance, mood disturbance, and anxiety; I11.9 Hypertensive heart disease without heart failure; F32.9 Major depressive disorder, single episode, unspecified; I34.0 Nonrheumatic mitral (valve) insufficiency; I35.8 Other nonrheumatic aortic valve disorders; M50.30 Other cervical disc degeneration, unspecified cervical region; Z99.81 Dependence on supplemental oxygen; Z83.3 Family history of diabetes mellitus; Z82.49 Family history of ischemic heart disease and other diseases of the circulatory system; Z90.710 Acquired absence of both cervix and uterus; Z90.49 Acquired absence of other specified parts of digestive tract; Z88.5 Allergy status to narcotic agent; Z91.030 Bee allergy status
CPT/HCPCS: 36415; 70450; 71045; 72125; 80048; 80053; 81001; 82962; 83036; 83605; 83735; 84100; 84145; 84443; 84484; 85025; 87040; 87070; 87205; 93005; 93306; 94640; 96365; 96375; 99285; G0378; J0456; J0696; J1644; J7620; J7626; J7050

== ENCOUNTER 2018-09-30 17:43 | Emergency (ER) | payer OTHER ==
[~2018-09-30] VITALS: Ht 154.9 cm; Wt 65.1 kg
[~2018-09-30 17:43] MED LIST changes: +APIX5TAB PO; +AZIT500T5 PO; +BENZ-17 PO; +BUPR150T13 PO; +HYDR-3237 PO; +METO25TA35 PO
[2018-09-30 18:18] LABS: BASOPHILS # (AUTO) 0.09 x10^3/uL (0-0.1); BASOPHILS % (AUTO) 1 % (0-1); EOSINOPHILS # (AUTO) 0.27 x10^3/uL (0-0.4); EOSINOPHILS % (AUTO) 3 % (1-7); LYMPHOCYTES % (AUTO) 45 % (22-44); MD NO; MEAN CORPUSCULAR HEMOGLOBIN 27.7 pg (27.0-34.8); MEAN CORPUSCULAR HGB CONC 32.7 g/dL (32.4-35.8); MEAN CORPUSCULAR VOLUME 84.5 fL (80-100); MEAN PLATELET VOLUME 10.2 fL (7.4-10.4); MONOCYTES # (AUTO) 0.53 x10^3/uL (0.2-0.8); MONOCYTES % (AUTO) 6 % (2-9); NEUTROPHILS # (AUTO) 3.69 x10^3/uL (1.8-6.8); NEUTROPHILS % (AUTO) 44 % (42-75); PLATELET COUNT 288 x10^3/uL (130-400); RED BLOOD COUNT 5.24 x10^6/uL (3.82-5.3); RED CELL DISTRIBUTION WIDTH 17.2 % (9.6-15.2)
--- NOTE | 2018-09-30 18:23 | NUR ---
PT COMPLAINS OF GENERALIZED SHAKINESS. PT HAD A GLF 2 DAYS AGO AND WOKE UP ON THE FLOOR SOME TIME LATER. PT IS ALERT, ORIENTED, WITH NAD. PT IS CONNECTED TO THE MONITOR. CALL LIGHT WITHIN REACH. MD AT BEDSIDE.
[2018-09-30 18:27] VITALS: BP 153/92
[2018-09-30 18:29] LABS: ALANINE AMINOTRANSFERASE 21 U/L (12-78); ALBUMIN 3.9 g/dL (3.4-5.0); ANION GAP 5 mmol/L (5-15); CALCIUM 9.2 mg/dL (8.5-10.1); CHLORIDE 104 mmol/L (98-107); CREATININE 1.02 mg/dL (0.55-1.02)
[2018-09-30 18:31] LABS: ALKALINE PHOSPHATASE 77 U/L (45-117); BILIRUBIN,TOTAL 0.2 mg/dL (0.2-1.0); TOTAL PROTEIN 7.6 g/dL (6.4-8.2)
--- NOTE | 2018-09-30 19:03 | NUR ---
Report given to Bryant LACEY.
[2018-09-30 19:06] LABS: MICROSCOPIC NOT IND
[2018-09-30 19:10] LABS: CULTURE INDICATED? NO
[2018-09-30 19:27] LABS: TROPONIN I < 0.015 ng/mL (0.000-0.045)
== END 2018-09-30 20:08 | disposition home or self-care (01) ==
LOC: ED 19:37
DX: R42 Dizziness and giddiness (principal); R56.9 Unspecified convulsions; F32.9 Major depressive disorder, single episode, unspecified; J44.9 Chronic obstructive pulmonary disease, unspecified; E11.9 Type 2 diabetes mellitus without complications; I10 Essential (primary) hypertension; G89.29 Other chronic pain; Z90.89 Acquired absence of other organs; Z90.49 Acquired absence of other specified parts of digestive tract; Z90.710 Acquired absence of both cervix and uterus; W01.0XXA Fall on same level from slipping, tripping and stumbling without subsequent striking against object, initial encounter; Y93.89 Activity, other specified; Y92.89 Other specified places as the place of occurrence of the external cause; Y99.8 Other external cause status
CPT/HCPCS: 36415; 70450; 71045; 80053; 81003; 84484; 85025; 93005; 99284